=== PATIENT | male | born 1945 | race Caucasian/White ===

== ENCOUNTER 2018-02-06 17:15 | Emergency (ER) | payer BC, OTHER ==
--- NOTE | 2018-02-06 17:20 | PDOC ---
Rapid Medical Evaluation Time Seen by Provider: 02/06/18 17:17 Medical Evaluation: Allergies Allergy/AdvReac Type Severity Reaction Status Date / Time No Known Allergies Allergy Verified 12/26/15 01:54 02/06/18 17:18 I have performed a brief in-person evaluation of the patient. The patient presents with a chief complaints of injury to left 2nd digit 3 days ago, finger got caught in a folding table Patient complaining of pain and inability to bend finger. Pertinent physical exam findings: NAD even and unlabored breathing left 2nd digit with swelling and dried blood under nail, + erythema at tip of finger. I have ordered the following: xray of left 2nd digit, analgesia The patient will proceed to the ED for further evaluation.
[2018-02-06 17:21] VITALS: BP 135/80; PULSE 77; TEMP 98; BMI 25.5
--- NOTE | 2018-02-06 18:31 | PDOC ---
History of Present Illness - General Chief Complaint: Injury Stated Complaint: INJURY Time Seen by Provider: 02/06/18 17:17 History Source: Patient Exam Limitations: No Limitations - History of Present Illness Initial Comments: 02/06/18 18:43 Patient is a 72-year-old male presents emergency department after getting his left second finger stuck in a folding chair. Patient is right-hand dominant. Patient states that approximately 4 days ago work he calls a folding chair on his hand. He states that the nail very painful and turn black. Denies numbness and tingling to the extremity, fevers, chills, weakness of the finger. Past History - Travel Traveled outside of the country in the last 30 days: No Close contact w/someone who was outside of country & ill: No - Past Medical History Allergies/Adverse Reactions: Allergies Allergy/AdvReac Type Severity Reaction Status Date / Time No Known Allergies Allergy Verified 02/06/18 17:18 Home Medications: Ambulatory Orders Cefpodoxime Proxetil [Vantin -] 100 mg PO BID #14 tablet 12/18/15 Tamsulosin HCl [Flomax] 0.4 mg PO DAILY 02/06/18 COPD: No Disorders: Yes (enlarged prostate) - Immunization History Immunization Up to Date: Yes - Suicide/Smoking/Psychosocial Hx Smoking Status: Yes Smoking History: Former smoker Have you smoked in the past 12 months: No Number of Cigarettes Smoked Daily: 0 If you are a former smoker, when did you quit?: 4 yrs ago Cigars Per Day: 0 Information on smoking cessation initiated: No Hx Alcohol Use: No Drug/Substance Use Hx: No Substance Use Type: None Review of Systems - Review of Systems Able to Perform ROS?: Yes Comments:: 02/06/18 17:44 CONSTITUTIONAL: Absent: fever, chills, diaphoresis, generalized weakness, malaise, loss of appetite MUSCULOSKELETAL: Present: Pain to tip of L second finger. Absent: myalgia, arthralgia, joint swelling SKIN: Present: L2nd nail bruising Absent: rash, itching, pallor HEMATOLOGIC/IMMUNOLOGIC: Absent: easy bleeding, easy bruising, lymphadenopathy, frequent infections ENDOCRINE: Absent: unexplained weight gain, unexplained weight loss, heat intolerance, cold intolerance NEUROLOGIC: Absent: headache, focal weakness or paresthesias, dizziness, unsteady gait, seizure, mental status changes, bladder or bowel incontinence Is the patient limited French proficient: No *Physical Exam - Vital Signs Last Vital Signs Temp Pulse Resp BP Pulse Ox 98.0 F 77 18 135/80 97 02/06/18 17:18 02/06/18 17:18 02/06/18 17:18 02/06/18 17:18 02/06/18 17:18 - Physical Exam Comments: 02/06/18 19:44 GENERAL: The patient is awake, alert, and fully oriented, in no acute distress. HEAD: Normal with no signs of trauma. EYES: Pupils equal, round and reactive to light, extraocular movements intact, sclera anicteric, conjunctiva clear. EXTREMITIES: L second finger with sublingual hematoma. TTP of the same nail bed. Normal range of motion, no edema. NEUROLOGICAL: Normal speech, normal gait. PSYCH: Normal mood, normal affect. SKIN: Warm, Dry, normal turgor, no rashes or lesions noted. Medical Decision Making - Medical Decision Making 02/06/18 19:45 Patient is a 72-year-old male who presents emergency department for a subungual hematoma of the left second digit. The initial trauma happened 4 days ago, therefore the patient is not a candidate for sedation at this time. X-ray obtained from [facility] is negative for fracture. Finger is placed in a splint for protection of the nailbed. Patient instructed to soak the finger and have him follow up with primary care. Return precautions given. Patient received all discharge instructions and all questions were answered. *DC/Admit/Observation/Transfer Diagnosis at time of Disposition: Subungual hematoma - Discharge Dispostion Disposition: HOME Condition at time of disposition: Stable Admit: No - Referrals Referrals: Ramon Carreno MD [Primary Care Provider] - - Patient Instructions Additional Instructions: Your x-ray is negative for fracture of the finger You have a bruise under your finger nail. You were placed in a splint to protect your finger Soak the finger for 20 minute intervals 3-4 times a day to help with the pain You may take Tylenol 650mg every 6 hours as needed for pain not to exceed 4, 000mg a day Follow up with your primary care doctor in one week Return to the ED if you have worsening pain, numbness and tinging, fevers, or have any changes in your symptoms. - Post Discharge Activity Forms/Work/School Notes: Back to Work
== END 2018-02-06 18:34 | disposition home or self-care (01) ==
LOC: JERFT 17:15
PROC: 2W3KX1Z Immobilization of Left Finger using Splint (ICD-10-PCS; principal; 2018-02-06)
DX: S60.122A Contusion of left index finger with damage to nail, initial encounter (principal); W23.0XXA Caught, crushed, jammed, or pinched between moving objects, initial encounter; Y93.H3 Activity, building and construction; Y92.89 Other specified places as the place of occurrence of the external cause; Y99.0 Civilian activity done for income or pay
CPT/HCPCS: 73140-TC-LT-FY; 99281-25

== ENCOUNTER 2021-04-25 20:31 | Emergency (ER) | payer OTHER, BC ==
[2021-04-25 20:49] VITALS: TEMP 98.3; BMI 25.0
[2021-04-25 23:02] VITALS: BP 154/90; PULSE 78
== END 2021-04-25 23:00 | disposition home or self-care (01) ==
LOC: JER 20:31
DX: R33.9 Retention of urine, unspecified (principal)
CPT/HCPCS: 99283-25

== ENCOUNTER 2021-08-14 16:11 | Emergency (ER) | payer OTHER, BC ==
[2021-08-14 16:30] VITALS: BP 166/90; PULSE 74; TEMP 98; BMI 26.6
== END 2021-08-14 17:46 ==
LOC: JERFT 16:11
DX: S60.112A Contusion of left thumb with damage to nail, initial encounter (principal); S60.10XA Contusion of unspecified finger with damage to nail, initial encounter; W23.0XXA Caught, crushed, jammed, or pinched between moving objects, initial encounter; Y92.89 Other specified places as the place of occurrence of the external cause
CPT/HCPCS: 73140-TC-RT-FY; 99284-25

== ENCOUNTER 2024-10-17 07:13 | Emergency (ER) | payer OTHER ==
[2024-10-17 07:24] VITALS: BMI 26.6
[2024-10-17 09:37] LABS: PH,URINE 5.5 (5.0-8.0); URINE APPEARANCE CLEAR; URINE BILIRUBIN NEGATIVE (NEGATIVE); URINE COLOR YELLOW; URINE GLUCOSE (UA) NEGATIVE (NEGATIVE); URINE KETONE NEGATIVE (NEGATIVE); URINE LEUK ESTERASE NEGATIVE (NEGATIVE); URINE NITRITE NEGATIVE (NEGATIVE); URINE PROTEIN NEGATIVE (NEGATIVE); URINE UROBILINOGEN 0.2 mg/dL (0.2-1.0)
[2024-10-17 10:34] VITALS: BP 150/92; PULSE 110; RESP 16; TEMP 98.4
[2024-10-17 10:39] LABS: URINE RBC 32.5 /uL (0-23.9); URINE WBC 2.3 /uL (0-25.8)
[2024-10-17 10:40] LABS: HYALINE CASTS 0.27 /uL (0-3.1); URINE BACTERIA 2.8 /uL (0-1359)
== END 2024-10-17 10:45 | disposition home or self-care (01) ==
LOC: JER 07:13
DX: R33.9 Retention of urine, unspecified (principal)
CPT/HCPCS: 81003; 87086; 99283-25